=== PATIENT | female | born 1965 | race Caucasian/White ===

== ENCOUNTER 2019-05-03 19:01 | Emergency (ER) | payer SELFPAY ==
[2019-05-03] VITALS (21 sets, daily range): BP systolic 95–119; BP diastolic 52–88; PULSE 68–92; RESP 11–25; TEMP 37.1; O2SAT 89–97
--- NOTE | ~2019-05-03 | XR_ITS ---
EXAMINATION: XR chest 2V EXAM DATE: 05/03/2019 19:31 INDICATION: Shortness of breath, history of COPD, high blood pressure. TECHNIQUE: Frontal and lateral projections of the chest obtained and reviewed. There is no prior rafa dy for comparison. FINDINGS: The lungs are clear. There are no pleural effusions. The cardiomediastinal silhouette is within normal limits. There is no pneumothorax suspected. The bones and soft tissues are unremarkab le. IMPRESSION: No acute cardiopulmonary findings. Reviewed, dictated and finalized at location A. S PROGRAM COORDINATOR
--- NOTE | 2019-05-03 19:10 | PC.NURSE ---
Report given to ELMO Lopez.
--- NOTE | 2019-05-03 19:10 | ED.OVERDOSE ---
HPI - Overdose General Chief Complaint: Overdose Stated Complaint: od Time Seen by Provider: 05/03/19 19:05 Source: patient Mode of arrival: EMS Limitations: no limitations History of Present Illness HPI Narrative: A 53 y/o female presents to the ED, via EMS, with c/o accidental heroin overdose. Pt states that she does not frequently use heroin. She denies the use of any other drugs or alcohol use today. Pt was with other people when she overdosed and they called EMS. She denies CP, SOB, and fever. Pt was given Narcan en route by EMS. She has no other complaints at this time. complaint: accidental overdose Onset (ago): hour(s) (Today) How Overdose Was Discovered: family/friend present at time Associated symptoms: other (None) Treatments Prior to Arrival: narcan Related Data Allergies Allergy/AdvReac Type Severity Reaction Status Date / Time No Known Allergies Allergy Unverified 11/20/17 07:14 Review of Systems Review of Systems: All systems reviewed & are unremarkable except as noted in HPI and below Constitutional: Constitutional: Denies fever(s) Cardiovascular: Cardiovascular: Denies chest pain Respiratory: Respiratory: Denies dyspnea Psychiatric: Psychiatric: Reports other (Accidental overdose) [facility] Past Medical History Medical History (Updated 05/03/19 @ 23:27 by Oni Emerson MD) Bronchitis COPD (chronic obstructive pulmonary disease) Foot fracture, right Hypotension Pneumonia Post-menopausal Substance abuse Surgical History Surgical History (Updated 05/03/19 @ 19:12 by Jessica Whitten) History of section History of hernia repair History of tonsillectomy Social History Social History (Updated 05/03/19 @ 19:13 by Jessica Whitten) Smoking packs per day: 1 Smoking cigarettes per day: 20.0 Years smoked: 31 Smoking pack-years: 31.00 Smoking status: Current every day smoker Tobacco type: cigarettes Second hand tobacco smoke exposure: Yes Substance use: current Substance use type: marijuana, crack/cocaine and heroin Exam Const: General: healthy appearing, no acute distress, well developed and other (No external trauma present) Nutritional Appearance: well nourished Orientation/consciousness: patient oriented x3 (alert) and Other orientation findings (Alert) Limitations: no limitations HENMT: Head: normocephalic and atraumatic Ears: external ears normal General nose exam: No nasal discharge present and no epistaxis Face and sinus: face symmetric Mouth: Yes lip normal, Yes tongue normal and Yes moist mucous membranes Throat: other (No exudate, no erythema) Eyes: Conjunctivae: conjunctivae normal Sclera: sclerae normal Pupils: Other pupil findings (Constricted) EOM: EOMs intact bilaterally Neck: Neck: full ROM, no lymphadenopathy and supple Thyroid: thyroid normal Chest: Chest palpation & inspection: no tenderness Resp: Effort & Inspection: normal respiratory effort Auscultation: clear to auscultation bilaterally, no rales, no rhonchi, no wheezes and other (breath sounds equal) Cardio: Rate: regular rate Rhythm: regular rhythm Heart sounds: no gallops and no murmurs GI: Inspection: non-distended GI Palp: No abdominal tenderness and Yes Soft to palpation Auscultation: other (bowel sounds present) : General: Yes no CVA tenderness Back/Spine/Pelvis: Back: no CVA tenderness Thoracic/Lumbar Spine: thoracic and lumbar spine normal to inspection Skin: General skin exam: normal color and no rashes or lesions noted Neuro: General: patient oriented x3 (alert), moves all extremities, no focal motor deficits and other (Lethargic but arousable) Cranial nerves: Yes facial symmetry Speech: normal speech Motor exam (neuro): Motor abnormalities not present Extrem: General: normal to inspection, full ROM and no pedal edema Psych: Affect: normal affect Course Course Emergency Course: She received one additional dose of narcan shortly after arrival and then
[2019-05-03] MEDS: NALOXONE HCL INJ 2 MG/2 ML AMP IV PUSH (19:23)
--- NOTE | 2019-05-03 19:27 | PC.NURSE ---
Patient taken to radiology.
[2019-05-03] MEDS: LACTATED RINGERS 1,000 ML 999 ML IV CONT (19:33)
--- NOTE | 2019-05-03 19:35 | ECG_ITS ---
Measurements Intervals [place] Rate: 68 P: 78 CT: 139 QRS: 61 QRSD: 104 T: 73 QT: 417 QTc: 444 Interpretive Statements SINUS RHYTHM NORMAL ECG Electronically Signed On 05-04-2019 7:27:59 GROUP BILLING COORDINATOR by Kory Hook D.O.
[2019-05-03 20:05] LABS: Basophils Percent Auto 0.6 % (0.2-1.2); Eosinophils Absolute Auto 0.1 K/mm3 (0-0.3); Eosinophils Percent Auto 2.1 % (0-4.4); Immature Granulocyte Absolute 0.02 K/mm3 (0.00-0.031); Immature Granulocyte Percent A 0.3 % (0-0.5); Lymphocytes Absolute Auto 1.49 K/mm3 (0.9-3.2); Lymphocytes Percent Auto 22.5 % (18.3-44.2); Mean Corpuscular HGB Conc 32.5 g/dl (32-36); Mean Corpuscular Volume 95.5 fl (80-100); Mean Platelet Volume 10.3 fl (7.4-10.4); Monocytes Absolute Auto 0.4 K/mm3 (0.1-0.6); Monocytes Percent Auto 5.7 % (2.6-8.5); Neutrophils Absolute Auto 4.6 K/mm3 (1.3-6.7); Neutrophils Percent Auto 68.8 % (45.5-73.1); Platelet Count Result 185 k/mm3 (150-375); Red Blood Count 4.19 M/mm3 (4.2-5.4); Red Cell Distribution Width 13.2 % (11.5-14.5); White Blood Count 6.6 K/mm3 (4.5-10.0)
[2019-05-03 20:17] LABS: Acetaminophen < 10 ug/mL (10-30); Blood Urea Nitrogen 13 mg/dL (7-17); Carbon Dioxide 29 mmol/L (22-30); Chloride 104 mmol/L (98-107); Estimated CRCL calculation 78 ml/min; Estimated Glomerular Filt Rate > 60; Ethanol < 10 mg/dL (<10); Glucose 121 mg/dL (65-105); Sodium 139 mmol/L (137-145)
--- NOTE | 2019-05-03 21:17 | PC.NURSE ---
Patient's daughter Vanna Gorman calls to get update on patient. She states to call her back when a decision is made for patient's care. Vanna left her phone number [phone] to call back.
[2019-05-03] MEDS: POTASSIUM CHLORIDE 20 MEQ PACKET (FOR LIQUID) 40 MEQ PO (21:26)
--- NOTE | 2019-05-03 22:58 | PC.NURSE ---
Patient's son Lopez called to get patient update.
--- NOTE | 2019-05-03 23:39 | PC.NURSE ---
This nurse contacted patient's daughter Vanna, to inform her that the patient is being discharged. Vanna stated she will find a ride home for her mother. Vanna stated she does not have a car at this time to come pick the patient up, but she will find her a ride home. buzzle buffer aware.
== END 2019-05-03 23:57 | disposition home or self-care (01) ==
PROVIDERS: Emergency Provider Emergency Medicine
DX: T40.1X1A Poisoning by heroin, accidental (unintentional), initial encounter (principal); J44.9 Chronic obstructive pulmonary disease, unspecified; F17.210 Nicotine dependence, cigarettes, uncomplicated
CPT/HCPCS: 36415; 71046; 80048; 80307; 85025; 93005; 96361; 96374; 99284; A9270; J2310; J7120